=== PATIENT | female | born 1955 | race Caucasian/White ===

== ENCOUNTER 2019-12-16 18:25 | Emergency (ER) | payer BC ==
[2019-12-16] MEDS ORDERED: DIAZEPAM 5 MG TABLET PO ONE ×2 (18:46→19:16)
[2019-12-16] MEDS ORDERED: KETOROLAC 30 MG/ML VIAL IM ONE (18:48)
--- NOTE | 2019-12-16 18:53 | Emergency Department Record ---
History of Present Illness - General Chief Complaint: Back Pain/Injury Stated Complaint: BACK SPASMS Time Seen by Provider: 12/16/19 18:37 Source: Patient Mode of Arrival: Ambulatory Limitations: No limitations - History of Present Illness Initial Comments: 64 yo female presents with about 5 days of back spasms. She states she gets this about once or twice a year. The pain is in the low lumbar and into the bilateral buttocks area. The pain does radiate to the right buttocks a little as well. No radiation down the leg. No weakness, no tingling, no foot drop, no changes in bowel or bladder function. No recent trauma. She is comfort with certain positions. The pain is sharp and worse with specific movements. No abdominal pain. No dysuria or hematuria. No other changes in her health. MD Complaint: Back pain Onset/Timin -: Days(s) Similar Symptoms Previously: Yes Place: Home Radiation: Buttocks Severity: Severe Severity scale (1-10): 10 Consistency: Constant Improves With: Immobilization Worsens With: Movement, Sitting upright Context: Unknown Associated Symptoms: Denies other symptoms - Related Data Home Medications Medication Instructions Recorded Confirmed Last Taken Ibuprofen [Motrin] 800 mg PO ASDIR 12/16/19 12/16/19 12/16/19 Levothyroxine Sodium [Synthroid] 75 mcg PO DAILY 12/16/19 12/16/19 12/16/19 Previous Rx's Medication Instructions Recorded Diazepam [Valium] 5 mg PO Q8H #12 tab 12/16/19 Methylprednisolone [Medrol Dose 4 mg PO DAILY #1 tab.ds.pk 12/16/19 Pack] Allergies Allergy/AdvReac Type Severity Reaction Status Date / Time meperidine [From Demerol] Allergy HIVES Verified 12/16/19 18:35 Travel/Exposure Screening - Travel/Exposure Within Last 30 Days Have you traveled within the last 30 days?: No - Additonal Travel/Exposure Details Have you been exposed to anyone with a communicable illness?: No Review of Systems Constitutional: Denies: Chills, Fever, Malaise, Weakness Eyes: Denies: Eye discharge ENT: Denies: Congestion, Throat pain Respiratory: Denies: Cough, Dyspnea, Hemoptysis, Wheezes Cardiovascular: Denies: Chest pain, Palpitations, Syncope Endocrine: Denies: Fatigue, Polydipsia, Polyuria Gastrointestinal: Denies: Abdominal pain, Diarrhea, Nausea, Vomiting Genitourinary: Denies: Dysuria, Urgency Musculoskeletal: Reports: Back pain, Myalgia. Denies: Arthralgia, Joint swelling, Neck pain Skin: Denies: Bruising, Change in color, Rash Neurological: Denies: Headache, Numbness, Weakness Psychiatric: Denies: Anxiety Hematological/Lymphatic: Denies: Easy bleeding, Easy bruising Past Medical History - SOCIAL HISTORY Smoking Status: Never smoker Alcohol Use: None Drug Use: None - RESPIRATORY Hx Respiratory Disorders: No - CARDIOVASCULAR Hx Cardio Disorders: No - NEURO Hx Neuro Disorders: No - GI Hx GI Disorders: No - Hx Genitourinary Disorders: No - ENDOCRINE Hx Endocrine Disorders: Yes Hx Thyroid Disease: Yes - MUSCULOSKELETAL Hx Musculoskeletal Disorders: No - PSYCH Hx Psych Problems: No - HEMATOLOGY/ONCOLOGY Hx Hematology/Oncology Disorders: No Family Medical History Any Significant Family History?: No Physical Exam - General General Appearance: Alert, Oriented x3, Cooperative, No acute distress Limitations: No limitations - Head Head exam: Atraumatic, Normal inspection - Eye Eye exam: Normal appearance, PERRL. negative: Conjunctival injection, Scleral icterus - ENT ENT exam: Normal exam Ear exam: Normal external inspection Nasal Exam: Normal inspection Mouth exam: Normal external inspection - Neck Neck exam: Normal inspection, Full ROM, Tenderness. negative: Lymphadenopathy - Respiratory Respiratory exam: Normal lung sounds bilaterally. negative: Accessory muscle u se, Chest wall tenderness, Decreased breath sounds, Prolonged expiratory, Respiratory distress, Rhonchi, Stridor, Wheezes - Cardiovascular Cardiovascular Exam: Regular rate, Normal rhythm, Normal heart sounds - GI/Abdominal GI/Abdominal exam: Soft. negative: Distended, Guarding, Pulsatile mass, Tenderness - Rectal Rectal exam: Deferred - exam: Deferred - Extremities Extremities exam: Normal inspection, Full ROM, Other (Pain in the lumbar area with SLR bilateral but does not radiate down the leg). negative: Calf tenderness, Joint swelling, Normal capillary refill, Pedal edema, Tenderness - Back Back exam: Reports: Normal inspection, Muscle spasm, Paraspinal tenderness (low lumbar), Tenderness, Vertebral tenderness (deep lumbar and buttocks). Denies: CVA tenderness (R), CVA tenderness (L), Full ROM, Rash noted Image of Body Front/Back: 1 - normal inspection, tender to palpation - Neurological Neurological exam: Alert, Normal gait, Oriented X3, Reflexes normal, Other (She ambulates without limitation or assistance). negative: Abnormal gait, Altered, CN II-XII intact, Motor sensory deficit - Psychiatric Psychiatric exam: Normal affect, Normal mood. negative: Agitated, Anxious - Skin Skin exam: Dry, Intact, Normal color, Warm. negative: Abrasion, Cyanosis, Diaphoretic, Erythema, Mottled Course Vital Signs 12/16/19 18:30 Temperature 98.5 F Pulse Rate 79 Respiratory 18 Rate Blood Pressure 170/102 Pulse Ox 97 - Reevaluation(s) Reevaluation #1: The neurologic examination is normal as tested She has not had any imaging in many years so lumbar XRs were ordered No abdominal pain, no symptoms, no pulsating mass in abdomen, no GI symptoms 12/16/19 19:20 12/16/19 19:39 The patient is feeling better with improved ROM The XR was reviewed. Multilevel degenerative changes, spurring, disc space narrowing, spondylolithesis We discussed the results of the tests and questions were answered. The patient is doing well and is comfortable with DC. We discussed at length reasons to immediately return to the ED as well as close follow up. The patient will call the PCP for close follow up of this ED visit to review this visit and the tests performed DC vitals were reviewed. The patient was given a copy of the radiology reports to review with their family doctor for follow up Disposition Disposition: Discharge Clinical Impression: Lumbar spine strain Qualifiers: Encounter type: initial encounter Qualified Code(s): S39.012A - Strain of muscle, fascia and tendon of lower back, initial encounter Disposition: Home, Self-Care Condition: (1) Good Instructions: Low Back Strain (ED) Additional Instructions: Call your doctor for close follow up in the next week Return immediately if worse, weak, numb, tingling, changes in bowel or bladder function, abdominal pain. Take the medication as directed. No driving within 12 hours of taking valium Prescriptions: Methylprednisolone [Medrol Dose Pack] 4 mg PO DAILY #1 tab.ds.pk Diazepam [Valium] 5 mg PO Q8H #12 tab Forms: Patient Portal Access Time of Disposition: 19:00 Quality - Quality Measures Quality Measures: N/A - Blood Pressure Screening Does Patient Have Any of the Following: Active Dx of HTN Blood Pressure Classification: Hypertensive Reading Systolic Measurement: 170 Diastolic Measurement: 102 Screening for High Blood Pressure: Patient Exclusion, Hx of HTN [[id number]]
--- NOTE | 2019-12-16 19:47 | RADIOLOGY REPORT ---
EXAMINATION: Lumbar Spine Complete, Minimum Four Views EXAM DATE: 12/16/2019 7:15 PM INDICATION: back spasms ENCOUNTER: Initial FINDINGS: Degenerative disc disease is seen, with disc space narrowing and osteophyte formation. Ther e is mild spondylolisthesis of L4 on L5. There is mild retrolisthesis of L2 on L3. No acute bone abno rmality. Dictated by: Ramez Lo MD on 12/16/2019 7:39 PM. .
== END 2019-12-16 20:15 | disposition home or self-care (01) ==
LOC: ER 18:25
DX: S39.012A Strain of muscle, fascia and tendon of lower back, initial encounter (principal); M79.18 Myalgia, other site; X58.XXXA Exposure to other specified factors, initial encounter; Y92.009 Unspecified place in unspecified non-institutional (private) residence as the place of occurrence of the external cause
CPT/HCPCS: 72110; 96372; 99284; J1885